=== PATIENT | male | born 2000 | race Two or more races ===

== ENCOUNTER 2018-03-24 03:14 | Emergency (ER) | payer MEDICAID, OTHER ==
[~2018-03-24] VITALS: Ht 177.8 cm; Wt 81.6 kg
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
[2018-03-24 03:52] LABS: BASOPHILS % (AUTO) 0.3 % (0.0-2.0); EOSINOPHILS % (AUTO) 1.8 % (0.0-6.0); HEMATOCRIT 44 % (39-51); HEMOGLOBIN 14.9 g/dL (13.5-17.5); LYMPHOCYTES # (AUTO) 2.2 /CMM (0.8-4.8); LYMPHOCYTES % (AUTO) 29.4 % (20.0-44.0); MEAN CORPUSCULAR HEMOGLOBIN 30 PG (26.0-33.0); MEAN CORPUSCULAR HGB CONC 34 g/dl (31.0-36.0); MEAN CORPUSCULAR VOLUME 89 fL (80-96); MONOCYTES # (AUTO) 0.8 /CMM (0.1-1.30); MONOCYTES % (AUTO) 10.7 % (2.0-12.0); NEUTROPHILS # (AUTO) 4.3 /CMM (1.8-8.9); NEUTROPHILS % (AUTO) 57.8 % (43.0-81.0); PLATELET COUNT (AUTO) 269 /CMM (150-450); RDW COEFFICIENT OF VARIATION 13.1 (11.5-15.0); RED BLOOD CELL COUNT(AUTO) 4.96 MIL/uL (4.5-6.0); WHITE BLOOD COUNT (AUTO) 7.4 K/uL (4.3-11.0)
[2018-03-24 04:08] LABS: ALBUMIN 4.2 g/dL (3.4-5.0); BILIRUBIN,DIRECT 0.2 mg/dL (0.0-0.2); BILIRUBIN,TOTAL 1.1 mg/dL (0.2-1.0); CALCIUM, SERUM 8.6 mg/dL (8.5-10.1); CREATININE 0.9 mg/dL (0.6-1.3); POTASSIUM 3.2 mmol/L (3.5-5.1); TOTAL PROTEIN, SERUM 6.8 g/dL (6.4-8.2)
--- NOTE | 2018-03-24 04:27 | NUR ---
WATER PROVIDED TO PT. PT STATES HE IS UNABLE TO GIVE URINE AND REFUSED NAPIER CATH. MADE AWARE
--- NOTE | 2018-03-24 05:42 | NUR ---
Patient is resting comfortably in bed with eyes closed. Easily aroused. VSS
--- NOTE | 2018-03-24 06:20 | NUR ---
PT RESTING IN BED WITH NO S/S OF DISTRESS NOTED. WILL CONTINUE TO MONITOR PT
--- NOTE | 2018-03-24 07:18 | NUR ---
Received report from NAIF Black for BERT. Assumed care at this point in time.
--- NOTE | 2018-03-24 07:18 | NUR ---
REPORT GIVEN TO NAIF FIGUEROA FOR BERT.
--- NOTE | 2018-03-24 08:07 | NUR ---
[facility] for PET francis samayoa 1hr.
--- NOTE | 2018-03-24 08:45 | NUR ---
DR BAHENA AT FOR RE-EVAL.
--- NOTE | 2018-03-24 10:30 | NUR ---
FAHAD ZEPEDA AT FOR EVAL.
--- NOTE | 2018-03-24 11:15 | NUR ---
Patient discharged to home in stable condition. Written and verbal after care instructions given. Patient verbalizes understanding of instruction. AAOX3.
[2018-03-24 11:17] VITALS: BP 128/71
--- NOTE | 2018-03-24 11:20 | NUR ---
PATIENT WAS PROVIDED RESOURCES. AMBULATES OUT OF ER WITH STABLE GAIT.
== END 2018-03-24 11:33 | disposition home or self-care (01) ==
LOC: ER 03:17
DX: R45.851 Suicidal ideations (principal)
CPT/HCPCS: 36415; 80048; 80076; 80329; 85025; 99284; A4606; G0480 ×2; Z7610